=== PATIENT | male | born 1935 | race Caucasian/White ===

== ENCOUNTER 2019-01-31 09:32 | Emergency (ER) | payer MEDICARE, OTHER ==
[2019-01-31] MEDS ORDERED: MEMANTINE HCL10 MG PO (09:42)
[2019-01-31 10:13] LABS: IMMATURE GRANULOCYTES 0.5 % (0.0-5.0); MEAN CELL VOLUME 95.4 fL CALC (80.0-100.0); MEAN CORPUSCULAR HGB 31.7 pG CALC (26.0-32.0); MEAN CORPUSCULAR HGB CONC 33.2 g/L CALC (32.0-36.0); NEUT# 2.97 thou/uL (1.82-7.42); RED BLOOD COUNT 3.47 mill/uL (4.70-6.10); RED CELL DISTRI WIDTH 13.2 % (11.5-15.5)
[2019-01-31 10:14] LABS: HEMATOCRIT 33.1 % (39.0-50.0)
[2019-01-31 10:30] LABS: ALBUMIN 3.3 g/dL (3.2-5.0); ALKALINE PHOSPHATASE 66 u/l (38-126); ANION GAP 12 (6-22 (CALC)); BUN 11 mg/dL (8-23); BUN/CREATININE RATIO 12 (12-20 (CALC)); CARBON DIOXIDE 28 mmol/l (22-30); CHLORIDE 103 mmol/l (95-108); CREATININE 0.9 mg/dL (0.7-1.3); GFR > 60 ML/MIN (>=60 (CALC)); GFR FOR AFR.AMER. > 60 ML/MIN (>=60 (CALC)); POTASSIUM 4.3 mmol/l (3.5-5.1); SGOT/AST 43 u/l (19-48); SODIUM 137 mmol/l (137-146); TOTAL PROTEIN 6.2 g/dL (6.3-8.2)
[2019-01-31 10:31] LABS: ACT PARTIAL THROMBO TIME 27.6 SECONDS (20.0-32.5); PROTHROMBIN TIME 10.1 SECONDS (9.0-12.5)
[2019-01-31] MEDS ORDERED: PERCOCET 5/321 COMBO PO (11:50)
[2019-01-31] MEDS ORDERED: ENOXAPARIN40 MG/0.1 SC (11:51)
[2019-01-31 11:56] VITALS: BP 177/80
== END 2019-01-31 11:55 | disposition home or self-care (01) ==
LOC: ED 09:32
DX: M79.89 Other specified soft tissue disorders (principal)

== ENCOUNTER 2019-06-11 09:50 | Observation (INO) | payer MEDICARE, OTHER ==
[~2019-06-11] VITALS: Ht 180.3 cm; Wt 90.0 kg
[~2019-06-11 09:50] MED LIST: ENOXAPARIN40 MG/0.1 SC; MEMANTINE HCL10 MG PO; PERCOCET 5/321 COMBO PO
--- NOTE | 2019-06-11 09:50 | NUR ---
PT DROVE SELF TO THE ER FROM DR NEVAREZ OFFICE. PT STATES HE AWOKE AT 12MN WITH RT UPPER BACK DISCOMFORT THAT RADIATED TO RT UPPER CHEST. PT STATES HE IS PAIN FREE AT THIS TIME. STATES HE TOOK TWO REGULAR ASA AT HOME THIS AM
[2019-06-11 10:43] LABS: HEMATOCRIT 37.9 % (39.0-50.0); HEMOGLOBIN 12.5 g/dl (14.0-18.0); IMMATURE GRANULOCYTES 0.5 % (0.0-5.0); MEAN CELL VOLUME 91.1 fL CALC (80.0-100.0); NEUT# 2.94 thou/uL (1.82-7.42); RED BLOOD COUNT 4.16 mill/uL (4.70-6.10); RED CELL DISTRI WIDTH 13.3 % (11.5-15.5)
--- NOTE | 2019-06-11 10:46 | NUR ---
PT RESTING NO COMPLAINTS OFFERED, CALL WALTON WITHIN REACH
[2019-06-11 10:56] LABS: ALBUMIN 3.8 g/dL (3.2-5.0); ALKALINE PHOSPHATASE 99 u/l (38-126); AMYLASE 53 u/l (30-110); ANION GAP 10 (6-22 (CALC)); BILIRUBIN, TOTAL 0.4 mg/dL (0.0-1.4); BUN 16 mg/dL (8-23); BUN/CREATININE RATIO 19 (12-20 (CALC)); CARBON DIOXIDE 29 mmol/l (22-30); CHLORIDE 105 mmol/l (95-108); CREATININE 0.8 mg/dL (0.7-1.3); GFR > 60 ML/MIN (>=60 (CALC)); GFR FOR AFR.AMER. > 60 ML/MIN (>=60 (CALC)); LIPASE 179 u/l (23-300); SGOT/AST 20 u/l (19-48); SODIUM 139 mmol/l (137-146); TOTAL PROTEIN 6.9 g/dL (6.3-8.2)
[2019-06-11 11:07] LABS: MYOGLOBIN 28 ng/mL (0 - 121)
--- NOTE | 2019-06-11 11:07 | NUR ---
WARM BLANKET PROVIDED FOR COMFORT, PT ASKING HOWLONG HE WILLBE HERE EDUCATED REGARDING PLAN OF CARE AND ADMISSION PROTOCOL,PT VERBALIZES UNDERSTANDING
--- NOTE | 2019-06-11 11:25 | NUR ---
MD SPOKE WITH PATIENT REGARDING ADMISSION
--- NOTE | 2019-06-11 11:40 | NUR ---
UNABLE TO VERIFY MEDS WITH PT DT DEMENTIA, UNABLE TO REACH VIA TELEPHONE.
--- NOTE | 2019-06-11 11:49 | NUR ---
BEDM ASSIGNMENT REC'D, BENSON WITHIN REACH
--- NOTE | 2019-06-11 11:57 | NUR ---
REPORT CALLED TO ODELL PADGETT ON MED SURG
--- NOTE | 2019-06-11 12:15 | NUR ---
PT TRASNPORTEDTOMED SURG VIA WHEELCHAIR,A DMISTTING NURSE IN ROOMON ARRIVAL
--- NOTE | 2019-06-11 12:35 | NUR ---
PT ARRIVED VIA WC WITH STAFF. IV SITE IS FREE FROM REDNESS OR EDEMA. TELE MONTIOR IN PLACE. PT ABLE TO AMBULATE TO THE ROOM.
[2019-06-11 13:00] VITALS: BP 174/62
--- NOTE | 2019-06-11 13:00 | NUR ---
ASSESSMENT IS COMPLETED: IV SITE IS FREE FROM REDNESS OR EDEMA. HR IS REG,PULSES ARE STRONG X4, ABD IS SOFT WITH ACTIVE BS. BREATH SOUNDS ARE CLEAR,BILATERALLY, TELE MONITOR IN PLACE, CONTINUE TO OBSERVE AND MONITOR.
--- NOTE | 2019-06-11 14:59 | NUR ---
PT TALKING WITH BAMBI OYSTER HARVESTER
[2019-06-11 15:22] VITALS: BP 132/74
[2019-06-11] MEDS ORDERED: LIPITOR10 M1 PO (15:22)
[2019-06-11] MEDS ORDERED: DESYREL50 MG PO (15:22)
[2019-06-11] MEDS ORDERED: SINGULAIR10 MG PO (15:23)
[2019-06-11] MEDS ORDERED: NAMZARIC 28-101 CAP PO (15:23)
[2019-06-11] MEDS ORDERED: CYANOCOBAL1000 MCG/M IM (15:24)
[2019-06-11] MEDS ORDERED: FLONASE AL50 MCG/ACT (15:26)
--- NOTE | 2019-06-11 16:00 | NUR ---
PT IS RELAXING IN BED WITH NO DISTRESS NOTED. IV SITE IS FREE FROM REDNESS OR EDEMA. TELE MONITOR IN PLACE.
[2019-06-11 18:22] VITALS: BP 121/57
[2019-06-11 20:20] VITALS: BP 129/65
--- NOTE | 2019-06-11 20:20 | NUR ---
PT CALLED OT C/O CP, "SHARP LEFT SIDE." POINTING UNDER THE LEFT BREAST SIDE ON RIBS. V/S ASSESSED - STABLE AND EKG OBTAINED. PT IS SMILING AND TALKATIVE, BUT REPORTING PAIN 10/10 COMING AND GOING. DENIES SOB.
--- NOTE | 2019-06-11 21:00 | NUR ---
PT MEDICATED ORDERS PROVIDE. PT WAS UP WALKING AROUND THE ROOM. I ASKED IF HE FELT BETTER HE REPLIED, "UMMM, YEAH." POC DISCUSSED W/PT. HE DENIES ANY RECENT DIZZINESS OR FALLS W/IN 3 MONTHS. PT SELF AMBULATED TO RESTROOM AND BACK TO BED. REVIEWED CALL SYSTEM W/PT AND LIGHTS. PT STATES HE "WANTS TO SLEEP," AND IS ASKING WHEN WE WILL NEED HIM AGAIN. REMINDED PT OF MIDNIGHT V/S SCHEDULE. NO S/O DISTRESS AT THIS TIME.
[2019-06-11 23:39] VITALS: BP 138/78
[2019-06-12 04:00] VITALS: BP 136/74
--- NOTE | 2019-06-12 05:41 | NUR ---
PT IS AWAKE WATCHING TV W/LIGHTS OFF. PT IS TALKATIVE AND STATES THAT "THE STAFF HERE ARE EXCELLENT, PLEASE PASS THAT ON." PT C/O BED UNCOMFORTABLE AND TV TERRIBLE. PT DENIES SOB/PAIN/N/V OR ANY OTHER SYMPTOMS. STATES HE "JUST WANT TO GO HOME TODAY." CALL LIGHT AT SIDE AND PT ENCOURAGED TO CALL NEEDS ARISE.
--- NOTE | 2019-06-12 07:32 | NUR ---
SHIFT CHANGE REPORT, PT PLEASANTLY AWAKE ALERT AND ORIENTED, TALKATIVE, DENIES PAIN, TELE MONITOR IN PLACE, STATES HE FEELS MUCH BETER TODAY AND WANTS TO GO HOME, ADVISED MEDICAL TEAM WILL BE HERE LATER AND WILL ADDRESS D/C NEEDS, CALL WALTON IN REACH.
[2019-06-12 08:02] VITALS: BP 146/90
--- NOTE | 2019-06-12 11:00 | NUR ---
MEDICAL TEAM ROUNDED AND DISCUSSED D/C PLANS, PT STATED UNDERSTANDING.
[2019-06-12 11:10] VITALS: BP 150/78
--- NOTE | 2019-06-12 12:31 | NUR ---
Discharge instructions given. Patient verbalizes understanding of same. Discharged in good condition via Ambulatory to Home with spouse. All belongings sent with pt.
[2019-08-13] MEDS ORDERED: SINGULAIR10 MG PO (09:35)
[2019-08-13] MEDS ORDERED: TRAZODONE50 MG PO (09:36)
[2019-08-13] MEDS ORDERED: ATORVASTATIN CA10 MG PO (09:36)
[2019-08-13] MEDS ORDERED: CYANOCOBAL1000 MCG/M IM (09:37)
== END 2019-06-12 12:15 | disposition home or self-care (01) ==
LOC: ED 09:50 → ED-I 11:13 → ED 11:22 → ED-I 11:23 → MS2 11:23
PROVIDERS: Emergency Medicine; ADMIT Internal Medicine; ATTEND Internal Medicine
DX: R07.89 Other chest pain (principal); M54.6 Pain in thoracic spine; F03.90 Unspecified dementia, unspecified severity, without behavioral disturbance, psychotic disturbance, mood disturbance, and anxiety; E78.5 Hyperlipidemia, unspecified; G47.00 Insomnia, unspecified; R19.5 Other fecal abnormalities; M19.90 Unspecified osteoarthritis, unspecified site; R63.4 Abnormal weight loss; Z68.27 Body mass index [BMI] 27.0-27.9, adult; Z90.49 Acquired absence of other specified parts of digestive tract; Z92.3 Personal history of irradiation; Z92.21 Personal history of antineoplastic chemotherapy; Z85.048 Personal history of other malignant neoplasm of rectum, rectosigmoid junction, and anus; Z87.891 Personal history of nicotine dependence
CPT/HCPCS: G0378

== ENCOUNTER 2019-08-20 06:15 | Day surgery (SDC) | payer MEDICARE, OTHER ==
[~2019-08-20 06:15] MED LIST changes: +ATORVASTATIN CA10 MG PO; +CYANOCOBAL1000 MCG/M IM; +DESYREL50 MG PO; +FLONASE AL50 MCG/ACT; +LIPITOR10 M1 PO; +NAMZARIC 28-101 CAP PO; +SINGULAIR10 MG PO; +TRAZODONE50 MG PO
[2019-08-20 09:26] VITALS: BP 167/76
== END 2019-08-20 09:22 | disposition home or self-care (01) ==
LOC: ENDO 06:15 → ORM 07:30 → ENDO 07:30
PROVIDERS: ATTEND Surgery
PROC: 0DBL8ZX Excision of Transverse Colon, Via Natural or Artificial Opening Endoscopic, Diagnostic (ICD-10-PCS; principal; 2019-08-20)
PROC: 3E0H8GC Introduction of Other Therapeutic Substance into Lower GI, Via Natural or Artificial Opening Endoscopic (ICD-10-PCS; 2019-08-20)
DX: K57.31 Diverticulosis of large intestine without perforation or abscess with bleeding (principal); D12.3 Benign neoplasm of transverse colon; K63.5 Polyp of colon; Z85.048 Personal history of other malignant neoplasm of rectum, rectosigmoid junction, and anus; Z11.59 Encounter for screening for other viral diseases

== ENCOUNTER 2020-08-19 08:06 | Emergency (ER) | payer MEDICARE, OTHER ==
[~2020-08-19] VITALS: Ht 180.3 cm; Wt 79.5 kg
[2020-08-19 08:33] LABS: HEMATOCRIT 42.6 % (39.0-50.0); HEMOGLOBIN 14.1 g/dl (14.0-18.0); IMMATURE GRANULOCYTES 0.6 % (0.0-5.0); MEAN CELL VOLUME 100.9 fL CALC (80.0-100.0); MEAN CORPUSCULAR HGB 33.4 pG CALC (26.0-32.0); MEAN CORPUSCULAR HGB CONC 33.1 g/dL CAL (32.0-36.0); NEUT# 2.89 thou/uL (1.82-7.42); RED BLOOD COUNT 4.22 mill/uL (4.70-6.10); RED CELL DISTRI WIDTH 13.8 % (11.5-15.5)
[2020-08-19] MEDS ORDERED: NAMZARIC (08:40)
[2020-08-19] MEDS ORDERED: HIGH CHOLESTEROL (08:41)
[2020-08-19 08:49] LABS: ALKALINE PHOSPHATASE 87 u/l (38-126); ANION GAP 10 (6-22 (CALC)); BUN 14 mg/dL (8-23); BUN/CREATININE RATIO 16 (12-20 (CALC)); CARBON DIOXIDE 29 mmol/l (22-30); CHLORIDE 105 mmol/l (95-108); CREATININE 0.9 mg/dL (0.7-1.3); GFR > 60 ML/MIN (>=60 (CALC)); GFR FOR AFR.AMER. > 60 ML/MIN (>=60 (CALC)); POTASSIUM 3.8 mmol/l (3.5-5.1); SGOT/AST 32 u/l (19-48); SODIUM 140 mmol/l (137-146); TOTAL PROTEIN 7.5 g/dL (6.3-8.2)
[2020-08-19 08:51] LABS: BILIRUBIN, TOTAL 0.4 mg/dL (0.0-1.4)
[2020-08-19 09:01] LABS: MYOGLOBIN 107 ng/mL (0 - 121)
[2020-08-19] MEDS ORDERED: ATORVASTATIN CA10 MG PO (10:06)
[2020-08-19] MEDS ORDERED: NAMZARIC 28-101 CAP PO (10:07)
[2020-08-19 12:49] LABS: ACT PARTIAL THROMBO TIME 23.2 SECONDS (20.0-32.5); PROTHROMBIN TIME 9.7 SECONDS (9.0-12.5)
[2020-08-19 13:28] VITALS: BP 152/73
== END 2020-08-19 13:25 | disposition short-term general hospital (02) ==
LOC: ED 08:06
PROVIDERS: Emergency Medicine
DX: I21.4 Non-ST elevation (NSTEMI) myocardial infarction (principal); E78.5 Hyperlipidemia, unspecified; Z85.048 Personal history of other malignant neoplasm of rectum, rectosigmoid junction, and anus; Z20.822 Contact with and (suspected) exposure to COVID-19
CPT/HCPCS: J1644

== ENCOUNTER 2021-01-18 15:11 | Emergency (ER) | payer MEDICARE, OTHER ==
[~2021-01-18] VITALS: Ht 180.3 cm; Wt 90.0 kg
[~2021-01-18 15:11] MED LIST changes: +HIGH CHOLESTEROL; +NAMZARIC
[2021-01-18 15:58] LABS: HEMATOCRIT 31.6 % (39.0-50.0); HEMOGLOBIN 10.6 g/dl (14.0-18.0); IMMATURE GRANULOCYTES 0.5 % (0.0-5.0); MEAN CELL VOLUME 94.3 fL CALC (80.0-100.0); MEAN CORPUSCULAR HGB 31.6 pG CALC (26.0-32.0); MEAN CORPUSCULAR HGB CONC 33.5 g/dL CAL (32.0-36.0); NEUT# 15.44 thou/uL (1.82-7.42); RED BLOOD COUNT 3.35 mill/uL (4.70-6.10); RED CELL DISTRI WIDTH 13.1 % (11.5-15.5)
[2021-01-18 16:11] LABS: ALBUMIN 3.6 g/dL (3.2-5.0); ALKALINE PHOSPHATASE 62 u/l (38-126); ANION GAP 9 (6-22 (CALC)); BUN 15 mg/dL (8-23); BUN/CREATININE RATIO 15 (12-20 (CALC)); CARBON DIOXIDE 29 mmol/l (22-30); CHLORIDE 105 mmol/l (95-108); GFR > 60 ML/MIN (>=60 (CALC)); GFR FOR AFR.AMER. > 60 ML/MIN (>=60 (CALC)); POTASSIUM 3.8 mmol/l (3.5-5.1); SGOT/AST 35 u/l (19-48); SODIUM 139 mmol/l (137-146); TOTAL PROTEIN 6.8 g/dL (6.3-8.2)
[2021-01-18 16:19] LABS: BILIRUBIN, TOTAL 0.7 mg/dL (0.0-1.4)
[2021-01-18 20:37] LABS: URINE BILIRUBIN - DIPSTICK NEGATIVE (NEGATIVE); URINE BLOOD DIPSTICK NEGATIVE (NEGATIVE); URINE COLOR YELLOW; URINE GLUCOSE - DIPSTICK NEGATIVE (NEGATIVE); URINE KETONE NEGATIVE (NEGATIVE); URINE LEUK ESTERASE NEGATIVE (NEGATIVE); URINE PROTEIN - DIPSTICK NEGATIVE (NEG-TRACE); URINE SPECIFIC GRAVITY <=1.005; URINE UROBILINOGEN - DIPSTICK 0.2 E.U./dL (0.2)
[2021-01-18 20:42] LABS: URINE NITRITE - DIPSTICK NEGATIVE (Negative)
[2021-01-18 22:00] VITALS: BP 136/54
== END 2021-01-18 22:00 | disposition short-term general hospital (02) ==
LOC: ED 15:11
PROVIDERS: Family Medicine
DX: A41.9 Sepsis, unspecified organism (principal); I21.4 Non-ST elevation (NSTEMI) myocardial infarction; R65.20 Severe sepsis without septic shock; R19.7 Diarrhea, unspecified; R10.32 Left lower quadrant pain; I10 Essential (primary) hypertension; I25.10 Atherosclerotic heart disease of native coronary artery without angina pectoris; G30.9 Alzheimer's disease, unspecified; F02.80 Dementia in other diseases classified elsewhere, unspecified severity, without behavioral disturbance, psychotic disturbance, mood disturbance, and anxiety; E78.5 Hyperlipidemia, unspecified; Z95.5 Presence of coronary angioplasty implant and graft; Z85.048 Personal history of other malignant neoplasm of rectum, rectosigmoid junction, and anus; Z20.822 Contact with and (suspected) exposure to COVID-19
CPT/HCPCS: J1650; Q9967

== ENCOUNTER 2021-03-21 20:48 | Emergency (ER) | payer MEDICARE, OTHER ==
[~2021-03-21] VITALS: Ht 180.3 cm; Wt 76.4 kg
[2021-03-22] MEDS ORDERED: KEFLEX500 MG PO (00:44)
[2021-03-22 01:00] VITALS: BP 154/89
== END 2021-03-22 01:00 | disposition home or self-care (01) ==
LOC: ED 20:48
DX: R60.0 Localized edema (principal); E78.5 Hyperlipidemia, unspecified; G30.9 Alzheimer's disease, unspecified; F02.80 Dementia in other diseases classified elsewhere, unspecified severity, without behavioral disturbance, psychotic disturbance, mood disturbance, and anxiety; Z95.0 Presence of cardiac pacemaker; M79.89 Other specified soft tissue disorders; M79.601 Pain in right arm

== ENCOUNTER 2021-09-27 14:17 | Emergency (ER) | payer MEDICARE, OTHER ==
[2021-09-27] VITALS (12 sets, daily range): BP systolic 156–186; BP diastolic 61–120
[~2021-09-27] VITALS: Ht 180.3 cm; Wt 83.0 kg
[~2021-09-27 14:17] MED LIST changes: +KEFLEX500 MG PO
[2021-09-27 14:47] LABS: HEMATOCRIT 36.4 % (39.0-50.0); IMMATURE GRANULOCYTES 0.5 % (0.0-5.0); MEAN CELL VOLUME 95.8 fL CALC (80.0-100.0); MEAN CORPUSCULAR HGB 31.6 pG CALC (26.0-32.0); NEUT# 4.1 thou/uL (1.82-7.42); RED BLOOD COUNT 3.8 mill/uL (4.70-6.10); RED CELL DISTRI WIDTH 14.4 % (11.5-15.5)
[2021-09-27 15:05] LABS: PROTHROMBIN TIME 10.2 SECONDS (9.0-12.5)
[2021-09-27 15:07] LABS: ALBUMIN 3.7 g/dL (3.2-5.0); ALKALINE PHOSPHATASE 106 u/l (38-126); ANION GAP 8 (6-22 (CALC)); BUN 15 mg/dL (8-23); BUN/CREATININE RATIO 16 (12-20 (CALC)); CARBON DIOXIDE 29 mmol/l (22-30); CHLORIDE 106 mmol/l (95-108); GFR FOR AFR.AMER. > 60 ML/MIN (>=60 (CALC)); GFR OTHER RACES > 60 ML/MIN (>=60 (CALC)); LIPASE 230 u/l (23-300); SGOT/AST 32 u/l (19-48); SODIUM 139 mmol/l (137-146); TOTAL PROTEIN 6.5 g/dL (6.3-8.2)
[2021-09-27 15:09] LABS: BILIRUBIN, TOTAL 0.2 mg/dL (0.0-1.4)
[2021-09-27 15:18] LABS: MYOGLOBIN 32 ng/mL (0 - 121)
[2021-09-27 17:23] LABS: URINE BILIRUBIN - DIPSTICK NEGATIVE (NEGATIVE); URINE BLOOD DIPSTICK NEGATIVE (NEGATIVE); URINE COLOR YELLOW; URINE GLUCOSE - DIPSTICK NEGATIVE (NEGATIVE); URINE KETONE NEGATIVE (NEGATIVE); URINE LEUK ESTERASE NEGATIVE (NEGATIVE); URINE PH 5.5 (4.5-8.0); URINE PROTEIN - DIPSTICK NEGATIVE (NEG-TRACE); URINE SPECIFIC GRAVITY 1.025; URINE UROBILINOGEN - DIPSTICK 0.2 E.U./dL (0.2)
[2021-09-27 17:27] LABS: URINE NITRITE - DIPSTICK NEGATIVE (Negative)
[2021-09-27] MEDS ORDERED: MEDDOSEPAK PO (18:21)
[2021-09-27] MEDS ORDERED: METHOCARBAMOL500 MG PO (18:21)
== END 2021-09-27 18:40 | disposition home or self-care (01) ==
LOC: ED 14:17
PROVIDERS: Nurse Practitioner
DX: M54.2 Cervicalgia (principal); I25.10 Atherosclerotic heart disease of native coronary artery without angina pectoris; E78.5 Hyperlipidemia, unspecified; G30.9 Alzheimer's disease, unspecified; F02.80 Dementia in other diseases classified elsewhere, unspecified severity, without behavioral disturbance, psychotic disturbance, mood disturbance, and anxiety; Z95.2 Presence of prosthetic heart valve
CPT/HCPCS: Q9967

== ENCOUNTER 2022-08-13 12:02 | Emergency (ER) | payer MEDICARE, OTHER ==
[~2022-08-13] VITALS: Ht 180.3 cm; Wt 88.0 kg
[2022-08-13] VITALS (9 sets, daily range): BP systolic 89–166; BP diastolic 32–94
[~2022-08-13 12:02] MED LIST changes: +MEDDOSEPAK PO; +METHOCARBAMOL500 MG PO
[2022-08-13 12:50] LABS: BASO% 0.3 % (0-3); EOS% 2.4 % (0-8); HEMATOCRIT 36.9 % (39.0-50.0); HEMOGLOBIN 11.7 g/dl (14.0-18.0); IMMATURE GRANULOCYTES 0.3 % (0.0-5.0); LYMPH% 15.8 % (15-41); MEAN CELL VOLUME 95.6 fL CALC (80.0-100.0); MEAN CORPUSCULAR HGB 30.3 pG CALC (26.0-32.0); MEAN CORPUSCULAR HGB CONC 31.7 g/dL CAL (32.0-36.0); MONO% 13.1 % (2-13); NEUT# 4.63 thou/uL (1.82-7.42); NEUT% 68.1 % (42-76); RED BLOOD COUNT 3.86 mill/uL (4.70-6.10); RED CELL DISTRI WIDTH 13.7 % (11.5-15.5)
[2022-08-13 14:43] LABS: ALBUMIN 3.7 g/dL (3.2-5.0); ALKALINE PHOSPHATASE 111 u/l (38-126); ANION GAP 11 (6-22 (CALC)); BILIRUBIN, TOTAL 0.5 mg/dL (0.2-1.3); BUN 31 mg/dL (8-23); BUN/CREATININE RATIO 26 (12-20 (CALC)); CARBON DIOXIDE 29 mmol/l (22-30); CHLORIDE 108 mmol/l (95-108); CREATININE 1.2 mg/dL (0.7-1.3); GFR FOR AFR.AMER. > 60 ML/MIN (>=60 (CALC)); GFR OTHER RACES 58 ML/MIN (>=60 (CALC)); LIPASE 111 u/l (23-300); MAGNESIUM 2.2 mg/dL (1.6-2.3); POTASSIUM 4.2 mmol/l (3.5-5.1); SGOT/AST 29 u/l (19-48); SODIUM 143 mmol/l (137-146); TOTAL PROTEIN 7.2 g/dL (6.3-8.2)
[2022-08-13 14:44] LABS: C-REACTIVE PROTEIN 16.3 mg/dL (0-0.9)
[2022-08-13 14:48] LABS: INTERNATIONAL NORMALIZED RATIO 1.2 RATIO (0.7-1.3); PROTHROMBIN TIME 11.5 SECONDS (9.0-12.5)
[2022-08-13 15:11] LABS: URINE BILIRUBIN - DIPSTICK NEGATIVE (NEGATIVE); URINE BLOOD DIPSTICK NEGATIVE (NEGATIVE); URINE COLOR YELLOW; URINE GLUCOSE - DIPSTICK NEGATIVE (NEGATIVE); URINE KETONE TRACE mg/dL (NEGATIVE); URINE LEUK ESTERASE NEGATIVE (NEGATIVE); URINE NITRITE - DIPSTICK NEGATIVE (Negative); URINE PH 5.5 (4.5-8.0); URINE PROTEIN - DIPSTICK TRACE mg/dL (NEG-TRACE)
[2022-08-13] MEDS ORDERED: PREDNISONE10 MG PO (15:53)
== END 2022-08-13 15:30 | disposition home or self-care (01) ==
LOC: ED 12:02
PROVIDERS: Nurse Practitioner
DX: R53.1 Weakness (principal); M25.50 Pain in unspecified joint; G30.9 Alzheimer's disease, unspecified; F02.80 Dementia in other diseases classified elsewhere, unspecified severity, without behavioral disturbance, psychotic disturbance, mood disturbance, and anxiety; E78.5 Hyperlipidemia, unspecified; Z95.2 Presence of prosthetic heart valve; Z20.822 Contact with and (suspected) exposure to COVID-19

== ENCOUNTER 2022-09-10 13:49 | Observation (INO) | payer MEDICARE, OTHER ==
[~2022-09-10] VITALS: Ht 177.8 cm; Wt 80.0 kg
[~2022-09-10 13:49] MED LIST changes: +PREDNISONE10 MG PO
[2022-09-10 15:22] VITALS: BP 107/51
[2022-09-10 16:01] VITALS: BP 138/53
[2022-09-10 16:02] LABS: BASO% 0.1 % (0-3); EOS% 0.2 % (0-8); HEMOGLOBIN 11.5 g/dl (14.0-18.0); IMMATURE GRANULOCYTES 0.7 % (0.0-5.0); LYMPH% 5.8 % (15-41); MEAN CELL VOLUME 94.2 fL CALC (80.0-100.0); MEAN CORPUSCULAR HGB 30.1 pG CALC (26.0-32.0); MEAN CORPUSCULAR HGB CONC 31.9 g/dL CAL (32.0-36.0); MONO% 3.6 % (2-13); NEUT# 7.28 thou/uL (1.82-7.42); NEUT% 89.6 % (42-76); RED BLOOD COUNT 3.82 mill/uL (4.70-6.10); RED CELL DISTRI WIDTH 14.2 % (11.5-15.5)
[2022-09-10 16:19] LABS: ALKALINE PHOSPHATASE 105 u/l (38-126); ANION GAP 10 (6-22 (CALC)); BILIRUBIN, TOTAL 0.6 mg/dL (0.2-1.3); BUN 17 mg/dL (8-23); BUN/CREATININE RATIO 14 (12-20 (CALC)); C-REACTIVE PROTEIN 5.5 mg/dL (0-0.9); CARBON DIOXIDE 27 mmol/l (22-30); CHLORIDE 105 mmol/l (95-108); CREATININE 1.2 mg/dL (0.7-1.3); GFR FOR AFR.AMER. > 60 ML/MIN (>=60 (CALC)); GFR OTHER RACES 58 ML/MIN (>=60 (CALC)); POTASSIUM 4.3 mmol/l (3.5-5.1); SGOT/AST 29 u/l (19-48); SODIUM 137 mmol/l (137-146); TOTAL PROTEIN 6.1 g/dL (6.3-8.2)
[2022-09-10] MEDS ORDERED: ASPIRINCHW 81MG PO (16:19)
[2022-09-10] MEDS ORDERED: LOPRESSOR25 M1 PO (16:20)
[2022-09-10] MEDS ORDERED: MIRTAZAPINE15 MG PO (16:31)
[2022-09-10] MEDS ORDERED: PEPCID20 MG PO (16:32)
[2022-09-10] MEDS ORDERED: ULTRAM50 MG PO (16:33)
[2022-09-10] MEDS ORDERED: ABILIFY10 MG PO (16:33)
[2022-09-10 19:24] VITALS: BP 112/51
[2022-09-11 00:03] VITALS: BP 148/55
[2022-09-11 04:42] VITALS: BP 176/62
[2022-09-11 04:59] LABS: BASO% 0.2 % (0-3); HEMATOCRIT 37.5 % (39.0-50.0); HEMOGLOBIN 12.2 g/dl (14.0-18.0); IMMATURE GRANULOCYTES 0.7 % (0.0-5.0); LYMPH% 14.1 % (15-41); MEAN CELL VOLUME 93.5 fL CALC (80.0-100.0); MEAN CORPUSCULAR HGB 30.4 pG CALC (26.0-32.0); MEAN CORPUSCULAR HGB CONC 32.5 g/dL CAL (32.0-36.0); MONO% 6.4 % (2-13); NEUT# 4.81 thou/uL (1.82-7.42); NEUT% 78.6 % (42-76); RED BLOOD COUNT 4.01 mill/uL (4.70-6.10); RED CELL DISTRI WIDTH 14.1 % (11.5-15.5)
[2022-09-11 05:09] LABS: ALKALINE PHOSPHATASE 93 u/l (38-126); ANION GAP 11 (6-22 (CALC)); BILIRUBIN, TOTAL 0.6 mg/dL (0.2-1.3); BUN 14 mg/dL (8-23); BUN/CREATININE RATIO 17 (12-20 (CALC)); CARBON DIOXIDE 22 mmol/l (22-30); CHLORIDE 109 mmol/l (95-108); CREATININE 0.8 mg/dL (0.7-1.3); GFR FOR AFR.AMER. > 60 ML/MIN (>=60 (CALC)); GFR OTHER RACES > 60 ML/MIN (>=60 (CALC)); POTASSIUM 4.5 mmol/l (3.5-5.1); SGOT/AST 28 u/l (19-48); SODIUM 138 mmol/l (137-146)
[2022-09-11 07:27] VITALS: BP 123/58
[2022-09-11 11:30] VITALS: BP 136/57
== END 2022-09-11 12:18 | disposition home or self-care (01) ==
LOC: MS2 13:49
PROVIDERS: Nurse Practitioner Family; ADMIT Internal Medicine; ATTEND Internal Medicine
DX: R53.1 Weakness (principal); I25.10 Atherosclerotic heart disease of native coronary artery without angina pectoris; I49.5 Sick sinus syndrome; F03.90 Unspecified dementia, unspecified severity, without behavioral disturbance, psychotic disturbance, mood disturbance, and anxiety; M19.90 Unspecified osteoarthritis, unspecified site; Z87.19 Personal history of other diseases of the digestive system; Z92.21 Personal history of antineoplastic chemotherapy; Z92.3 Personal history of irradiation; Z95.0 Presence of cardiac pacemaker; Z87.891 Personal history of nicotine dependence; Z85.048 Personal history of other malignant neoplasm of rectum, rectosigmoid junction, and anus; Z95.828 Presence of other vascular implants and grafts
CPT/HCPCS: Q9967

== ENCOUNTER 2022-10-06 14:04 | Emergency (ER) | payer MEDICARE, OTHER ==
[2022-10-06] VITALS (11 sets, daily range): BP systolic 108–157; BP diastolic 50–105
[~2022-10-06] VITALS: Ht 177.8 cm; Wt 83.5 kg
[~2022-10-06 14:04] MED LIST changes: +ABILIFY10 MG PO; +ASPIRINCHW 81MG PO; +LOPRESSOR25 M1 PO; +MIRTAZAPINE15 MG PO; +PEPCID20 MG PO; +ULTRAM50 MG PO
[2022-10-06 15:24] LABS: BASO% 0.3 % (0-3); EOS% 0.6 % (0-8); HEMATOCRIT 38.6 % (39.0-50.0); HEMOGLOBIN 12.2 g/dl (14.0-18.0); IMMATURE GRANULOCYTES 0.6 % (0.0-5.0); LYMPH% 13.3 % (15-41); MEAN CELL VOLUME 93.7 fL CALC (80.0-100.0); MEAN CORPUSCULAR HGB 29.6 pG CALC (26.0-32.0); MEAN CORPUSCULAR HGB CONC 31.6 g/dL CAL (32.0-36.0); MONO% 10.2 % (2-13); NEUT# 4.85 thou/uL (1.82-7.42); RED BLOOD COUNT 4.12 mill/uL (4.70-6.10); RED CELL DISTRI WIDTH 14.7 % (11.5-15.5)
[2022-10-06 15:38] LABS: ALBUMIN 3.4 g/dL (3.2-5.0); ALKALINE PHOSPHATASE 93 u/l (38-126); BUN 24 mg/dL (8-23); BUN/CREATININE RATIO 25 (12-20 (CALC)); CHLORIDE 107 mmol/l (95-108); GFR FOR AFR.AMER. > 60 ML/MIN (>=60 (CALC)); GFR OTHER RACES > 60 ML/MIN (>=60 (CALC)); POTASSIUM 4.6 mmol/l (3.5-5.1); SGOT/AST 27 u/l (19-48); SODIUM 139 mmol/l (137-146); TOTAL PROTEIN 7.1 g/dL (6.3-8.2)
[2022-10-06 15:40] LABS: ANION GAP 10 (6-22 (CALC)); CARBON DIOXIDE 27 mmol/l (22-30)
[2022-10-06 17:20] LABS: URINE COLOR YELLOW; URINE GLUCOSE - DIPSTICK NEGATIVE (NEGATIVE); URINE KETONE 15 mg/dL (NEGATIVE); URINE PROTEIN - DIPSTICK 30 mg/dL (NEG-TRACE); URINE SPECIFIC GRAVITY >=1.030
[2022-10-06 17:21] LABS: URINE BLOOD DIPSTICK NEGATIVE (NEGATIVE); URINE LEUK ESTERASE NEGATIVE (NEGATIVE); URINE NITRITE - DIPSTICK NEGATIVE (Negative)
[2022-10-06 17:27] LABS: URINE RBC 0-2 RBC/hpf (0-5)
== END 2022-10-06 18:41 | disposition home or self-care (01) ==
LOC: ED 14:04 → ED-I 17:17 → ED 18:41
PROVIDERS: Nurse Practitioner
DX: R53.1 Weakness (principal); G30.9 Alzheimer's disease, unspecified; F02.80 Dementia in other diseases classified elsewhere, unspecified severity, without behavioral disturbance, psychotic disturbance, mood disturbance, and anxiety; E78.5 Hyperlipidemia, unspecified; Z85.048 Personal history of other malignant neoplasm of rectum, rectosigmoid junction, and anus; Z20.822 Contact with and (suspected) exposure to COVID-19

== ENCOUNTER 2022-10-27 15:00 | Emergency (ER) | payer MEDICARE, OTHER ==
[2022-10-27] VITALS (13 sets, daily range): BP systolic 106–148; BP diastolic 49–82
[~2022-10-27] VITALS: Ht 177.8 cm; Wt 79.3 kg
[2022-10-27 16:07] LABS: BASO% 0.1 % (0-3); HEMOGLOBIN 12.1 g/dl (14.0-18.0); IMMATURE GRANULOCYTES 0.4 % (0.0-5.0); LYMPH% 6.4 % (15-41); MEAN CELL VOLUME 95.2 fL CALC (80.0-100.0); MEAN CORPUSCULAR HGB 30.3 pG CALC (26.0-32.0); MEAN CORPUSCULAR HGB CONC 31.8 g/dL CAL (32.0-36.0); MONO% 9.5 % (2-13); NEUT# 7.66 thou/uL (1.82-7.42); NEUT% 83.6 % (42-76); RED BLOOD COUNT 3.99 mill/uL (4.70-6.10); RED CELL DISTRI WIDTH 15.7 % (11.5-15.5)
[2022-10-27 16:17] LABS: ALBUMIN 3.3 g/dL (3.2-5.0); ALKALINE PHOSPHATASE 105 u/l (38-126); ANION GAP 14 (6-22 (CALC)); BILIRUBIN, TOTAL 0.9 mg/dL (0.2-1.3); BUN 37 mg/dL (8-23); BUN/CREATININE RATIO 32 (12-20 (CALC)); CARBON DIOXIDE 22 mmol/l (22-30); CHLORIDE 108 mmol/l (95-108); CREATININE 1.2 mg/dL (0.7-1.3); GFR FOR AFR.AMER. > 60 ML/MIN (>=60 (CALC)); GFR OTHER RACES 58 ML/MIN (>=60 (CALC)); SGOT/AST 40 u/l (19-48); SODIUM 140 mmol/l (137-146)
[2022-10-27 17:14] LABS: URINE BLOOD DIPSTICK Negative (NEGATIVE); URINE GLUCOSE - DIPSTICK Negative (NEGATIVE); URINE KETONE 40 mg/dL (NEGATIVE); URINE LEUK ESTERASE Negative (NEGATIVE); URINE NITRITE - DIPSTICK Negative (Negative); URINE PH 5.5 (4.5-8.0); URINE PROTEIN - DIPSTICK 30 mg/dL (NEG-TRACE)
[2022-10-27 17:16] LABS: URINE COLOR Yellow
[2022-10-27 17:22] LABS: URINE RBC 0-2 RBC/hpf (0-5); URINE SQUAMOUS EPITHELIAL CELL RARE EPI/hpf (0-FEW)
[2022-10-27] MEDS ORDERED: AMOX/K CLAV875 M1 PO (17:48)
== END 2022-10-27 19:35 | disposition home or self-care (01) ==
LOC: ED 15:00
PROVIDERS: Family Medicine
DX: R53.1 Weakness (principal); G30.9 Alzheimer's disease, unspecified; F02.80 Dementia in other diseases classified elsewhere, unspecified severity, without behavioral disturbance, psychotic disturbance, mood disturbance, and anxiety; E78.5 Hyperlipidemia, unspecified; S51.011A Laceration without foreign body of right elbow, initial encounter; W19.XXXA Unspecified fall, initial encounter; Z85.048 Personal history of other malignant neoplasm of rectum, rectosigmoid junction, and anus; Z95.0 Presence of cardiac pacemaker; Z95.2 Presence of prosthetic heart valve; Z20.822 Contact with and (suspected) exposure to COVID-19

== ENCOUNTER 2022-11-03 15:28 | Emergency (ER) | payer MEDICARE, OTHER ==
[~2022-11-03] VITALS: Ht 182.9 cm; Wt 73.9 kg
[2022-11-03] VITALS (14 sets, daily range): BP systolic 97–141; BP diastolic 41–82
[~2022-11-03 15:28] MED LIST changes: +AMOX/K CLAV875 M1 PO
[2022-11-03 18:21] LABS: BASO% 0.1 % (0-3); EOS% 0.5 % (0-8); HEMATOCRIT 33.8 % (39.0-50.0); HEMOGLOBIN 10.9 g/dl (14.0-18.0); IMMATURE GRANULOCYTES 0.6 % (0.0-5.0); LYMPH% 12.1 % (15-41); MEAN CELL VOLUME 95.2 fL CALC (80.0-100.0); MEAN CORPUSCULAR HGB 30.7 pG CALC (26.0-32.0); MEAN CORPUSCULAR HGB CONC 32.2 g/dL CAL (32.0-36.0); NEUT# 6.55 thou/uL (1.82-7.42); NEUT% 76.7 % (42-76); RED BLOOD COUNT 3.55 mill/uL (4.70-6.10); RED CELL DISTRI WIDTH 16.9 % (11.5-15.5)
[2022-11-03 18:23] LABS: URINE BLOOD DIPSTICK Negative (NEGATIVE); URINE GLUCOSE - DIPSTICK Negative (NEGATIVE); URINE KETONE 15 mg/dL (NEGATIVE); URINE LEUK ESTERASE Negative (NEGATIVE); URINE NITRITE - DIPSTICK Negative (Negative); URINE PH 5.5 (4.5-8.0); URINE PROTEIN - DIPSTICK 30 mg/dL (NEG-TRACE)
[2022-11-03 18:24] LABS: ALKALINE PHOSPHATASE 100 u/l (38-126); ANION GAP 13 (6-22 (CALC)); BILIRUBIN, TOTAL 0.6 mg/dL (0.2-1.3); BUN 33 mg/dL (8-23); BUN/CREATININE RATIO 35 (12-20 (CALC)); CARBON DIOXIDE 24 mmol/l (22-30); CHLORIDE 109 mmol/l (95-108); CREATININE 0.9 mg/dL (0.7-1.3); GFR FOR AFR.AMER. > 60 ML/MIN (>=60 (CALC)); GFR OTHER RACES > 60 ML/MIN (>=60 (CALC)); POTASSIUM 3.8 mmol/l (3.5-5.1); SGOT/AST 30 u/l (19-48); SODIUM 141 mmol/l (137-146)
[2022-11-03 18:28] LABS: ALBUMIN 2.6 g/dL (3.2-5.0); TOTAL PROTEIN 5.5 g/dL (6.3-8.2)
[2022-11-03 18:36] LABS: URINE COLOR Dark yellow
[2022-11-03 18:38] LABS: URINE RBC 0-2 RBC/hpf (0-5); URINE WBC 0-2 WBC/hpf (0-5)
== END 2022-11-03 19:25 | disposition home or self-care (01) ==
LOC: ED 15:28
PROVIDERS: Family Medicine
DX: R53.1 Weakness (principal); E78.5 Hyperlipidemia, unspecified; G30.9 Alzheimer's disease, unspecified; F02.80 Dementia in other diseases classified elsewhere, unspecified severity, without behavioral disturbance, psychotic disturbance, mood disturbance, and anxiety; Z85.048 Personal history of other malignant neoplasm of rectum, rectosigmoid junction, and anus; Z95.2 Presence of prosthetic heart valve; Z95.0 Presence of cardiac pacemaker

== ENCOUNTER 2022-11-08 01:22 | Observation (INO) | payer MEDICARE, OTHER ==
[~2022-11-08] VITALS: Ht 182.9 cm; Wt 80.0 kg
[2022-11-08] VITALS (32 sets, daily range): BP systolic 120–164; BP diastolic 37–77
--- NOTE | 2022-11-08 01:30 | NUR ---
PT TO RM 11 VIA EMS INTUBATED AND CURRENTLY RECEIVING RESPIRATORY SUPPORT VIA BAG MASK. PER EMS, PT FOUND UNRESPONSIVE AT HOME. RT BEDSIDE AND PT PLACED ON VENT.
--- NOTE | 2022-11-08 01:35 | NUR ---
ARRIVES AND DR. SANABRIA BEDSIDE TO DISCUSS PLAN OF CARE. DNR SIGNED.
--- NOTE | 2022-11-08 01:42 | NUR ---
PT EXTUBATED PER 'S REQUEST.
--- NOTE | 2022-11-08 02:30 | NUR ---
JAYJAY PAZ. AMINA. AT BEDSIDE. VSS.
--- NOTE | 2022-11-08 04:20 | NUR ---
PT RESTING. NAD. WARM BLANKET APPLIED.
--- NOTE | 2022-11-08 05:25 | NUR ---
AWAITING ADMIT BED FOR COMFORT CARE. VSS. PT CALLS OUT AT TIMES BUT IS NON-CONVERSANT.
--- NOTE | 2022-11-08 06:45 | NUR ---
PT RESTING. WILL BE AN ER HOLD. REAL BED CALLED FOR. CALLED AND WILL BE COMING IN TO BE WITH PT. LOAN. AMINA.
--- NOTE | 2022-11-08 07:09 | NUR ---
REPORT RECEIVED FROM ANUP BOWERS. PT VSS, RESTING WITH EYES CLOSED, RESP EVEN/UNLABORED, NAD NOTED, CALL LIGHT IN PLACE.
--- NOTE | 2022-11-08 08:00 | NUR ---
PT RESTING WITH EYES CLOSED, VSS, NAD NOTED, RESP EVEN/UNLABORED, RESPOND TO VERBAL STIMULI, ANSWERES BASIC QUESTIONS WITH CORRECT RESPONSE, PT DROWSY, VERBALIZIED HAD TO URINATE, PLACED URINAL PT FAILED TO URINATE, BRIEF DRY. ORAL CARE PREFORMED DUE TO ORAL MUCOSA DRY FROM MOUTH BREATHING, CALL LIGHT IN REACH
--- NOTE | 2022-11-08 09:00 | NUR ---
[employer] MANAGER IN ROOM TO EVALUATE, VSS, NAD NOTED, PT RESTING EYES CLOSED, RESP EVEN/UNLABORED, STILL NO URINARY OUTPUT. CALL LIGHT IN REACH, CASE MANAGEMENT IN ROOM ADVISED HOSPICE HAS BEEN ALERTED AND WILL BE HERE. PT REQUIRING NO TX AT THIS TIME.
--- NOTE | 2022-11-08 09:38 | NUR ---
PT HAVING S/S TACHYCARDIA LASTING 10-15 SEC (UP TO 19O'S), PT ASYMPTOMATIC, CALM RESTING IN BED ALL OTHER VSS, EKG DONE, PROVIDER NOTIFIED.
--- NOTE | 2022-11-08 10:01 | NUR ---
AND HOSPICE NURSE TO ROOM.
--- NOTE | 2022-11-08 10:15 | NUR ---
PT HAD LG VERY SOFT BROWN STOOL, MUKESH CARE PERFORMED, PT READJUSTED IN BED, AT BEDSIDE, NAD NOTED, VSS, ORAL CARE PPEFORMED, CALL LIGHT IN REACH.
[2022-11-08] MEDS ORDERED: LORTAB5 PO (10:16)
--- NOTE | 2022-11-08 10:30 | NUR ---
HOSPICE HERE NOTIFIED PT HAS A BED AT [facility], PROVIDER FOR LYNDSAY IN CASE MGT NOTIFIED FOR TRANSFER ORDERS TO BE WRITTEN.
--- NOTE | 2022-11-08 11:12 | NUR ---
REPORT CALLED TO HOSPICE HOUSE.
--- NOTE | 2022-11-08 11:55 | NUR ---
FAMILY ADVISED TRANSPORT WOULD BE HERE AT 1200 TO TRANSPORT PT TO HOSPICE, PT MEDICATED PER MAR FOR S/S OF AGITATION, VSS, FAMILY LEFT TO GET LUNCH AND WILL MEET PT AT THE HOSPICE FACILITY.
--- NOTE | 2022-11-08 12:05 | NUR ---
POSITIVE HERE TO TRANSPORT PT TO [facility], REPORT GIVEN, PT VSS, RESP EVEN/UNLABORED, PT TAKEN BY STRETCHER FROM FACILITY AT APPROX 1220. ALL BELONGINGS SENT WITH PT AT TIME OF D/C. AT APPROX 1211 SPOKE WITH ASHLIE AT HOSPICE, SHE ADVISED TO SEND PT WITH THE 20G IV IN (L) HAND, I/V PATEN WITH NO S/S OF REDNESS OR SWELLING NOTED.
== END 2022-11-08 12:05 | disposition hospice, inpatient (51) ==
LOC: ED 01:22 → ED-I 04:18 → ED 04:41 → ED-I 04:42
PROVIDERS: ADMIT Student in an Organized Health Care Education/Training Program; ATTEND Student in an Organized Health Care Education/Training Program
PROC: 5A1935Z Respiratory Ventilation, Less than 24 Consecutive Hours (ICD-10-PCS; principal; 2022-11-08)
DX: R40.4 Transient alteration of awareness (principal); G30.9 Alzheimer's disease, unspecified; F02.80 Dementia in other diseases classified elsewhere, unspecified severity, without behavioral disturbance, psychotic disturbance, mood disturbance, and anxiety; E78.5 Hyperlipidemia, unspecified; M19.90 Unspecified osteoarthritis, unspecified site; I25.10 Atherosclerotic heart disease of native coronary artery without angina pectoris; I49.5 Sick sinus syndrome; Z87.19 Personal history of other diseases of the digestive system; Z51.5 Encounter for palliative care; Z66 Do not resuscitate; Z92.21 Personal history of antineoplastic chemotherapy; Z92.3 Personal history of irradiation; Z95.2 Presence of prosthetic heart valve; Z95.0 Presence of cardiac pacemaker; Z85.048 Personal history of other malignant neoplasm of rectum, rectosigmoid junction, and anus; Z90.49 Acquired absence of other specified parts of digestive tract; Z87.891 Personal history of nicotine dependence
CPT/HCPCS: J2060